=== PATIENT | female | born 1940 | race Caucasian/White ===

== ENCOUNTER 2017-06-10 22:02 | Emergency (ER) | payer MEDICARE, SELFPAY ==
[2017-06-10 22:04] VITALS: BP 160/72; PULSE 72; RESP 20; TEMP 36.2; O2SAT 97; BMI 44.1
--- NOTE | 2017-06-10 22:06 | RAD_ITS ---
XR Hip Unilateral with Pelvis when performed; 2-3 Views INDICATION: FALL, LEFT FEMUR/HIP PAIN COMPARISON: None TECHNIQUE: Frontal view of the pelvis and 2 views of the left hip FINDINGS: The pelvis is intact and there is normal alignment at the SI joints and symphysis pubis. Superior and inferior pelvic rami appear intact. The hips appear intact and well aligned. Dedicated views of the left hip demonstrate mild degenerative changes. No convincing plain film evidence of fracture or dislocation. RAD/Hip 2-3 Views with Pelvis IMPRESSION: Pelvis and left hip appear intact and well aligned. at 2317 Reported and signed by: Angy Valladares MD Electronically Signed: Angy Valladares MD at 23:15 EDT Tel , Service support ,
--- NOTE | 2017-06-10 22:10 | ED.VISSUMM ---
- ER Visit Summary Date of Service: 06/10/17 Chief Complaint: Mechanical fall History of Present Illness: The patient is a 76 F presents to the emergency department after mechanical fall. Patient was in her bathtub. She states that she got a new mat in the tub. She thought that the suction cups were down, but the mat slipped. She fell landing on her left hip. She did not strike her head. She denies loss of consciousness. She was unable to get up because of the pain. She has had prior rib fracture, but no history of other orthopedic injury. She does not take anticoagulants. She was not syndrome prior to the fall. She normally ambulates without assistance. Physical Examination: Vital signs reviewed General: Well-nourished, well-developed Head: Normocephalic, atraumatic Eyes: Pupils equal and reactive, extraocular muscles intact Neck, supple, no lymphadenopathy Heart: Regular rate and rhythm Respiratory: No distress, clear bilaterally Abdomen: Soft, nontender, nondistended, no peritoneal signs Back: Nontender Extremities: No rotational deformity of the left lower extremity, tenderness to palpation over the greater trochanter, pain with logroll, no edema, no cords Skin: Normal color no rash Neuro: Alert and oriented, no focal or lateralizing deficits Test Results: [] Emergency Department Course and Treatment: Patient presents after mechanical fall. She had tenderness in the left hip. She was given analgesics and antiemetics with improvement of her pain. Labs were obtained were unremarkable. The fall was strictly mechanical. X-rays of the chest are unremarkable. X-rays of the pelvis and hip show no fracture. Patient's pain is improved. The patient is able to stand and ambulate. At this time, I do for that she is safe for discharge. She will continue Tylenol at home. The patient will be discharged to follow-up with PCP or return with worsening symptoms. Treatment Plan: [] Disposition: Discharge Impression: 1. Mechanical fall 2. Left hip contusion This note was generated with [employer] software. It may contain incorrect words, spelling, and punctuation that were not noted in review of the chart prior to signing ED Disposition - Plan for ED Patient: Chief Complaint: Fall Instructions: ED Contusion Hip Referrals: Myron Sanders MD [Primary Care Provider] -
[2017-06-10] MEDS: 0.9% Normal Saline 1,000 ML 150 ML IV (22:16)
[2017-06-10] MEDS: Morphine 4 MG/ML Syringe IV (22:16)
[2017-06-10] MEDS: Ondansetron 4 MG/2 ML Vial IV (22:17)
--- NOTE | 2017-06-10 22:30 | RAD_ITS ---
XR Chest 1 View INDICATION: FALL, LEFT FEMUR/HIP PAIN COMPARISON: None FINDINGS: Heart size and pulmonary vascularity are within normal limits. The lungs are clear without evidence of airspace consolidation or pleural effusion. The osseous structures are grossly unremarkable. RAD/Chest 1 View (Portable) IMPRESSION: No radiographic evidence of acute intrathoracic disease. at 2316 Reported and signed by: Angy Valladares MD Electronically Signed: Angy Valladares MD at 23:14 EDT Tel , Service support ,
[2017-06-10 22:47] LABS: Anion Gap 7 (5-15); BUN 16 mg/dL (7-18); BUN/Creat Ratio 16.5 RATIO (10-20); Calcium,Total 8.9 mg/dL (8.5-10.1); Chloride 100 mmol/L (98-107); Creatinine, Serum 0.97 mg/dL (0.55-1.02); EST Glomerular Filtration Rate 59 mL/min (>60); Est Glom Filt Rate - Afr Amer 72 mL/min (>60); Estimated Creatinine Clearance 72.13 ml/min; Glucose 139 mg/dL (74-106); Potassium 3.8 mmol/L (3.5-5.1); Sodium Level 132 mmol/L (136-145)
[2017-06-10 22:51] LABS: Absolute Lymphocyte Count 3.76 X10^3/ul (0.83-4.51); Basophil# 0.03 X10^3/uL; Basophil% 0.3 % (0-1); Eosinophil# 0.47 X10^3/uL; Eosinophils% 5.1 % (0-5); Hematocrit 37.5 % (37-47); Hemoglobin 13.1 g/dl (12.0-15.0); Lymphocyte # 3.76 X10^3/ul (4.0); Lymphocyte % 40.9 % (19-41); Mean Corp Hgb Conc 34.9 g/gl (32-36); Mean Corpuscular Hgb 30.3 pg (27.0-32.0); Mean Corpuscular Volume 86.8 fL (81-99); Mean Platelet Vol. 9.1 fl (6.2-12.0); Monocyte# 0.94 X10^3/uL; Monocyte% 10.2 % (0-10); Neutrophil # 3.97 X10^3/uL (2.7-7.7); Neutrophil % 43.3 % (47-70); Platelet Count 237 K/mm3 (150-450); RBC Distribution Width CV 12.7 % (11.6-14.6); RBC Distribution Width SD 40.8 fl (35.1-43.9); Red Blood Count 4.32 M/mm3 (4.2-5.4); White Blood Count 9.2 K/mm3 (4.4-11.0)
[2017-06-10 22:52] LABS: POSITIVE COUNT NO; POSITIVE DIFFERENTIAL NO; POSITIVE MORPHOLOGY NO
[2017-06-10 23:27] VITALS: BP 132/82; PULSE 69; RESP 14; O2SAT 94
== END 2017-06-10 23:38 | disposition home or self-care (01) ==
PROVIDERS: Emergency Provider Emergency Medicine; Family Provider Family Medicine; PCP Family Medicine
DX: S70.02XA Contusion of left hip, initial encounter (principal); I10 Essential (primary) hypertension; E78.00 Pure hypercholesterolemia, unspecified; Z79.891 Long term (current) use of opiate analgesic; Z79.899 Other long term (current) drug therapy; W18.2XXA Fall in (into) shower or empty bathtub, initial encounter; Y93.E1 Activity, personal bathing and showering; Y92.002 Bathroom of unspecified non-institutional (private) residence as the place of occurrence of the external cause; Y99.8 Other external cause status
CPT/HCPCS: 71045; 73502; 80048; 85025; 96361; 96374; 96375; 99285; J7030; A4216

== ENCOUNTER 2018-05-02 18:38 | Emergency (ER) | payer MEDICARE, SELFPAY ==
[2018-05-02 18:39] VITALS: BP 165/84; PULSE 68; RESP 16; TEMP 36.6; O2SAT 96; BMI 44.1
--- NOTE | 2018-05-02 19:35 | RAD_ITS ---
STUDY: X-RAY - RIGHT ELBOW REASON FOR EXAM: Female, 77 years old. Pain TECHNIQUE: 3 view(s) of the elbow. COMPARISON: None. FINDINGS: Normal visualized radius and ulna. There is a focal area of hypodensity at the capitellum measuring 1.7 x 1.3 cm, of questionable etiology. Normal radiocapitellar and ulnotrochlear articulations. There is soft tissue injury posterior to the elbow. RAD/Elbow min 3 Views IMPRESSION: No acute bony injury of the elbow. Hypodense area of the capitellum of the humerus. Electronically Signed: Carlos Renner DO at 20:52 EDT Tel [phone], Service support ,
--- NOTE | 2018-05-02 21:25 | ED.DCSUM_ITS ---
- ER Visit Summary Date of Service: 05/02/18 Chief Complaint: Fall History of Present Illness: The patient is a 77 F who presents with injury to her right elbow that occurred today after a fall. Patient states she tripped and fell onto her right elbow. Patient denies any head injury or loss of consciousness. Patient states the pain is throbbing and is worse with movement. Patient states her tetanus is up-to-date. Physical Examination: Vital signs are stable. Patient is afebrile. Patient is in no acute distress. Musculoskeletal exam reveals tenderness over the posterior aspect of the right elbow. There is no deformity noted. Range of motion was limited secondary to pain. There is an abrasion and skin tear over the posterior aspect of the right elbow. There is no active bleeding noted. Radial pulses are equal bilaterally. Sensation was intact to light touch in the radial, median, and ulnar areas. The remaining physical exam is within normal limits. Test Results: X-rays of the right elbow were obtained. There is no acute fracture. Emergency Department Course and Treatment: Bacitracin dressing was applied. Patient was instructed to follow-up with her primary care physician in 5-7 days. Patient understood and was agreeable with the plan. All questions were answered. Disposition: Discharge home Impression: Right elbow abrasion This note was generated with [employer] dictation software. It may contain incorrect words, spelling, and punctuation that were not noted in review of the chart prior to signing ED Disposition - Plan for ED Patient: Disposition: Home or Assisted Living Diagnosis: Abrasion of right elbow, initial encounter Instructions: ED Abrasion Referrals: Myron Sanders MD [Primary Care Provider] - 5-7 Days
== END 2018-05-02 21:51 | disposition home or self-care (01) ==
PROVIDERS: Emergency Provider Emergency Medicine; Family Provider Family Medicine; PCP Family Medicine
DX: S50.311A Abrasion of right elbow, initial encounter (principal); I10 Essential (primary) hypertension; W01.0XXA Fall on same level from slipping, tripping and stumbling without subsequent striking against object, initial encounter; Y93.01 Activity, walking, marching and hiking; Y92.89 Other specified places as the place of occurrence of the external cause; Y99.8 Other external cause status
CPT/HCPCS: 73080; 99284

== ENCOUNTER 2020-11-10 19:30 | Emergency (ER) | payer MEDICARE, SELFPAY ==
[2020-11-10 19:43] VITALS: BP 211/94; PULSE 90; RESP 16; TEMP 36.9; O2SAT 98; BMI 42.7
--- NOTE | 2020-11-10 20:26 | CT_ITS ---
EXAMINATION : Head CT w/out contrast HISTORY : Head injury COMPARISON : None. TECHNIQUE : Multiple contiguous axial images were obtained from the skull base to the vertex without intravenous contrast. A radiation dose optimization technique was used for this scan. FINDINGS : There is no evidence for acute intracranial hemorrhage, mass effect, or midline shift. There is no extra-axial fluid collection. There are periventricular white matter changes consistent with chronic microvascular ischemic disease. There is sulcal widening and ventricular enlargement consistent with cerebral atrophy. There is normal velasco-white differentiation, without CT evidence of acute ischemia or infarct. Right temporal lobe encephalomalacia. The skull base and calvarium are unremarkable. The orbits are unremarkable. Mucosal thickening of the bilateral maxillary and sphenoid sinuses as well as multiple ethmoid air cells. The mastoid air cells are well-aerated. Large left supraorbital scalp hematoma. CT/Brain/Head without Contrast IMPRESSION: Large left supraorbital scalp hematoma. No fracture or intracranial hemorrhage. Chronic involutional and ischemic changes of the brain. Bilateral maxillary, sphenoid and ethmoid sinusitis. Electronically Signed: Jagdeep Urena MD at 21:13 EDT Tel , Service support ,
--- NOTE | 2020-11-10 20:27 | EDS_ITS ---
HPI History of Present Illness Chief Complaint: Head Injury Informant: patient Onset/Context/Timing Onset: Today Mechanism/Context: Fall Location of pain/injuries: Left hand Quality of Pain: Sharp Location: Left frontal Worsened by: Nothing Relieved by: Nothing Associated Symptoms Associated Symptoms: Negative for Parasthesias, Weakness, Inability to ambulate, Loss of consciousness and Amnesia Narrative Narrative: Patient presents after a fall that occurred today. Patient lost her balance and fell forward. Patient hit the left side of her head. Patient denies any loss of consciousness. Patient also hit the back of her left hand. Patient states nothing makes her pain worse and nothing makes it better. Patient states her pain is localized to the left frontal area. Patient describes her pain as sharp. Patient states her last tetanus shot was approximately 1 year ago. [facility] Medical History Hypertension Home Medications hydrochlorothiazide 50 mg PO DAILY 03/19/13 [History Last Taken Unknown] alendronate 70 mg PO Q7D@0700 06/10/17 [History Last Taken 11/07/20] lisinopril 1 tab PO DAILY 06/10/17 [History Last Taken Unknown] oxybutynin chloride [Ditropan Xl] 15 mg PO DAILY 06/10/17 [History Last Taken Unknown] tramadol 1 tab PO DAILY PRN 06/10/17 [History Last Taken Unknown] Allergy/AdvReac Type Severity Reaction Status Date / Time cephalexin monohydrate Allergy Other Verified 11/10/20 19:32 [From Keflex] ibuprofen Allergy Hives Verified 11/10/20 19:32 latex Allergy Hives Verified 11/10/20 19:32 chocolate flavor AdvReac Other Verified 11/10/20 19:32 Social History Smoking Status: Former smoker ROS ROS ED Constitutional Constitutional ED: Denies chills or fever(s) Eyes Eyes: Denies blurry vision or change in vision ENT ENT ED: Denies rhinorrhea or sore throat Cardiovascular Cardiovascular: Denies chest pain or palpitations Respiratory/Chest Respiratory/Chest: Denies cough or dyspnea Gastrointestinal Gastrointestinal: Denies nausea or vomiting Genitourinary Genitourinary ED: Denies dysuria or hematuria Musculoskeletal Musculoskeletal: Denies back pain or neck pain Integumentary Reports Abrasions; Denies abscess or rash Neurologic Neurologic: Reports headache(s); Denies weakness Allergic/Immunologic Allergic/Immunologic ED: Denies mouth swelling or urticaria EXAM Physical Exam Const Vital Signs: 11/10/20 19:43 11/10/20 19:45 Temperature 98.5 F Temperature Source Oral Pulse Rate 90 Respiratory Rate 16 Respiratory Effort Normal Non-Labored Respiratory Depth Normal Respiratory Pattern Normal Blood Pressure 211/94 H Blood Pressure Mean 133 Pulse Ox 98 Oxygen Delivery Method Room Air Positive well nourished, well developed and obese General Appearance ED: well developed Nutritional Appearance: obese HEENT HEENT Narrative: There is edema, ecchymosis, and tenderness over the left forehead area. There is a superficial abrasion over the left temporal area. There is no active bleeding. There is no bony crepitance or step-off. There is no deformity noted. Eyes PERRL and EOMs intact bilaterally Neck full ROM General: Negative for tenderness Resp normal respiratory effort and clear to auscultation bilaterally Cardio regular rhythm Rate: regular rate GI normal to inspection, nondistended, normoactive bowel sounds and non-tender Palpation: soft Extremity normal to inspection and full ROM Neuro oriented x3, CN's II-XII intact bilaterally, moves all extremities, no focal motor deficits and no sensory deficits noted Sensorium / Orientation: alert Psych mental status grossly normal Skin Skin Narrative: There is a superficial skin tear noted over the dorsal aspect of the left hand. There is no active bleeding. There is minimal gapping of the wound margins. There are no foreign bodies noted. MDM MDM MDM Narrative Medical decision making narrative: CT scan of the brain was obtained. There is no acute intracranial abnormality noted. There is a large scalp hematoma over the left supraorbital area. There is diffuse chronic sinusitis noted. This was interpreted by the radiologist and reviewed by myself. Bacitracin dressing was applied to the skin tear over the left hand. Patient was instructed to rest in a dark quiet room. Patient was instructed to take Tylenol or ibuprofen as needed for any pain. Patient was instructed to follow-up with her primary care physician in 3 to 5 days. Patient understood and was agreeable with the plan. All questions were answered. Radiography Diagnostic Testing: Radiology Impression Brain CT 11/10/20 20:26 IMPRESSION: Large left supraorbital scalp hematoma. No fracture or intracranial hemorrhage. Chronic involutional and ischemic changes of the brain. Bilateral maxillary, sphenoid and ethmoid sinusitis. Electronically Signed: Jagdeep Urena MD at 21:13 EDT Tel , Service support , Discharge Plan Triage Chief Complaint: Head Injury ED Provider: Ashish Ayala Dx/Rx/DC Orders Clinical Impression: Head injury Instructions: ED Head Injury (Adult) Prescriptions: No Action hydrochlorothiazide 50 MG tablet 50 mg PO DAILY RF: 0 oxybutynin chloride [Ditropan XL] 15 MG tablet extended release 24hr 15 mg PO DAILY RF: 0 alendronate 70 MG tablet 70 mg PO Q7D@0700 RF: 0 lisinopril 10 MG tablet 1 tab PO DAILY RF: 0 tramadol 50 MG tablet 1 tab PO DAILY PRN (Reason: Pain) RF: 0 Primary Care Provider: Myron Sanders Referrals: Myron Sanders MD [Primary Care Provider] - 3-5 Days Disposition Disposition: Home, Self Care
[2020-11-10 22:38] VITALS: PULSE 70; RESP 18; O2SAT 95
== END 2020-11-10 22:50 | disposition home or self-care (01) ==
PROVIDERS: Emergency Provider Emergency Medicine; PCP Family Medicine
DX: S09.90XA Unspecified injury of head, initial encounter (principal); E66.9 Obesity, unspecified; I10 Essential (primary) hypertension; Z87.891 Personal history of nicotine dependence; Z79.899 Other long term (current) drug therapy; W19.XXXA Unspecified fall, initial encounter
CPT/HCPCS: 70450; 99284

== ENCOUNTER 2020-12-29 18:41 | Emergency (ER) | payer MEDICARE, SELFPAY ==
[2020-12-29 18:41] VITALS: BP 192/77; PULSE 75; RESP 20; TEMP 36.7; O2SAT 98; BMI 41.1
--- NOTE | 2020-12-29 19:55 | CT_ITS ---
STUDY: CT BRAIN WITHOUT CONTRAST REASON FOR EXAM: Female, 80 years old. Head injury fall RADIATION DOSAGE (If Supplied By Facility): CTDIvol = ( 44.99 ) mGy, DLP = ( 796.11 ) mGycm TECHNIQUE: Transaxial CT imaging of the brain was performed without administration of intravenous contrast material. Individualized dose optimization techniques were used for this CT. COMPARISON: No relevant priors. FINDINGS: There is no acute intracranial hemorrhage, mass effect, hydrocephalus or herniation. 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 Skull is intact. There are minor mucosal reactive changes in the paranasal sinuses. Appearance is stable since prior. CT/Brain/Head without Contrast IMPRESSION: 1. No acute injury. 2. Unremarkable brain. Electronically Signed: Migdalia Carrasquillo MD at 20:26 EST Tel , Service support ,
[2020-12-29] MEDS: Lidocaine/Epi/Tetracaine 50 ML 1 APPLIC TOPICAL (20:07)
--- NOTE | 2020-12-29 20:11 | EX.ED.GENINJ ---
HPI History of Present Illness Chief Complaint: Head Injury Informant: patient Onset/Context/Timing Onset: Today Mechanism/Context: Fall Quality of Pain: Throbbing Location: Forehead Worsened by: Nothing Relieved by: Nothing Associated Symptoms Associated Symptoms: Negative for Parasthesias, Weakness, Inability to ambulate and Loss of consciousness Narrative Narrative: Patient presents with head injury that occurred today. Patient states she tripped on a loose rug. Patient states she fell forward and hit her head on a cat toy. Patient denies any loss of consciousness. Patient describes her pain as throbbing. Patient denies any paresthesias or weakness. Patient states her last tetanus was 1 to 2 years ago. Patient states the bleeding has been persistent. Patient denies any other injuries. Tetanus Immunization: <5 years PFSH PFSH Medical History (Updated 12/29/20 @ 22:[address] Ashish Ayala DO) Hypertension Home Medications hydrochlorothiazide 50 mg PO DAILY 03/19/13 [History Last Taken Unknown] alendronate 70 mg PO Q7D@0700 06/10/17 [History Last Taken 11/07/20] lisinopril 1 tab PO DAILY 06/10/17 [History Last Taken Unknown] oxybutynin chloride [Ditropan Xl] 15 mg PO DAILY 06/10/17 [History Last Taken Unknown] tramadol 1 tab PO DAILY PRN 06/10/17 [History Last Taken Unknown] diphenhydramine HCl [Benadryl Allergy] 25 mg PO DAILY 12/29/20 [History Last Taken Unknown] ebjuskiu-qki-vcvl-FA-lutein [Centrum Silver Women] 1 tab PO DAILY 12/29/20 [History Last Taken Unknown] Allergy/AdvReac Type Severity Reaction Status Date / Time cephalexin monohydrate Allergy Other Verified 12/29/20 19:42 [From Keflex] ibuprofen Allergy Hives Verified 12/29/20 19:42 latex Allergy Hives Verified 12/29/20 19:42 chocolate flavor AdvReac Other Verified 12/29/20 19:42 Surgical History (Updated 12/29/20 @ 20:[address] Ashish Ayala DO) History of carpal tunnel surgery of left wrist Social History Smoking Status: Former smoker ROS ROS ED Constitutional Constitutional ED: Denies chills or fever(s) Eyes Eyes: Denies blurry vision or change in vision ENT ENT ED: Denies rhinorrhea or sore throat Cardiovascular Cardiovascular: Denies chest pain or palpitations Respiratory/Chest Respiratory/Chest: Denies cough or dyspnea Gastrointestinal Gastrointestinal: Denies nausea or vomiting Genitourinary Genitourinary ED: Denies dysuria or hematuria Musculoskeletal Musculoskeletal: Denies back pain or neck pain Integumentary Denies abscess or rash Neurologic Neurologic: Reports headache(s); Denies weakness Allergic/Immunologic Allergic/Immunologic ED: Denies mouth swelling or urticaria EXAM Physical Exam Const Vital Signs: 12/29/20 18:41 12/29/20 19:43 Temperature 98.1 F Temperature Source Temporal Pulse Rate 75 Respiratory Rate 20 H Respiratory Effort Normal Non-Labored Respiratory Depth Normal Respiratory Pattern Normal Blood Pressure 192/77 H Blood Pressure Mean 115 Pulse Ox 98 Oxygen Delivery Method Room Air Positive well nourished and well developed General Appearance ED: well developed HEENT HEENT Narrative: There is a 4.5 cm full-thickness linear laceration in the midline of the forehead. There is moderate bleeding. There is no bony crepitance or step-off. There are no foreign bodies noted. Eyes PERRL and EOMs intact bilaterally Neck full ROM Resp normal respiratory effort and clear to auscultation bilaterally Cardio regular rhythm Rate: regular rate GI normal to inspection, nondistended, normoactive bowel sounds and non-tender Palpation: soft Extremity normal to inspection Neuro oriented x3, CN's II-XII intact bilaterally, moves all extremities, no focal motor deficits and no sensory deficits noted Sensorium / Orientation: alert PROC Procedures Lacerations Forehead: Depth: Sub Q Shape: Linear Prep: Sterile Conditions and Chlorhexadine Laceration repair: Dermabond and Wound explored MDM MDM MDM Narrative Medical decision making narrative: CT scan of the brain was obtained. There is no acute intracranial abnormality. This was interpreted by the radiologist and reviewed by myself. LET gel was applied to the forehead laceration. The wound was cleaned and irrigated with copious amounts of normal saline. The wound was closed with Dermabond skin adhesive. 3 layers were applied. Patient tolerated the procedure well. Patient was instructed to avoid bacitracin, Neosporin, triple antibiotic ointment, or other Vaseline-based ointments. Patient was instructed to follow-up with her primary care physician in 5 to 7 days. Patient understood and was agreeable with the plan. All questions were answered. Radiography Diagnostic Testing: Clinical Impression(s) from Imaging Studies Brain CT 12/29/20 19:55 IMPRESSION: 1. No acute injury. 2. Unremarkable brain. Electronically Signed: Migdalia Carrasquillo MD at 20:26 EST Tel , Service support , Discharge Plan Triage Chief Complaint: Head Injury ED Provider: Ashish Ayala Dx/Rx/DC Orders Clinical Impression: Closed head injury, Forehead laceration Instructions: ED Head Injury (Adult), ED Laceration, Face: Skin Glue Prescriptions: No Action hydrochlorothiazide 50 MG tablet 50 mg PO DAILY RF: 0 oxybutynin chloride [Ditropan XL] 15 MG tablet extended release 24hr 15 mg PO DAILY RF: 0 alendronate 70 MG tablet 70 mg PO Q7D@0700 RF: 0 lisinopril 10 MG tablet 1 tab PO DAILY RF: 0 tramadol 50 MG tablet 1 tab PO DAILY PRN (Reason: Pain) RF: 0 diphenhydramine HCl [Benadryl Allergy] 25 mg Tablet 25 mg PO DAILY RF: 0 Centrum Silver Women 8 mg iron-400 mcg-300 mcg Tablet 1 tab PO DAILY RF: 0 Primary Care Provider: Myron Sanders Referrals: Myron Sanders MD [Primary Care Provider] - 5-7 Days Disposition Disposition: Home, Self Care
== END 2020-12-29 22:42 | disposition home or self-care (01) ==
PROVIDERS: Emergency Provider Emergency Medicine; PCP Family Medicine
DX: S01.81XA Laceration without foreign body of other part of head, initial encounter (principal); I10 Essential (primary) hypertension; Z87.891 Personal history of nicotine dependence; Z79.899 Other long term (current) drug therapy; W01.198A Fall on same level from slipping, tripping and stumbling with subsequent striking against other object, initial encounter
CPT/HCPCS: G0168; 70450; 99285

== ENCOUNTER 2022-11-06 09:05 | Emergency (ER) | payer MEDICARE, SELFPAY ==
[2022-11-06 09:07] VITALS: BP 183/129; PULSE 72; RESP 18; TEMP 35.6; O2SAT 95; BMI 48.6
--- NOTE | 2022-11-06 09:51 | CT_ITS ---
HISTORY: pain. TECHNIQUE: Helically acquired images were obtained of the lumbar spine. 2D reformats were reviewed. A radiation dose optimization technique was used for this scan. .336 images. COMPARISON: None. FINDINGS: VERTEBRAE: Mild loss of height of the L2 vertebral body with mild linear sclerosis in the vertebral body. Mild angulation of the right superior endplate of L3. Generalized osteopenia. Peripherally sclerotic lesion in the left iliac bone at the sacroiliac joint, benign appearance. ALIGNMENT: No significant anterior or posterior subluxation. INTERVERTEBRAL DISCS: Preservation of disc heights. Calcification of the L3-4 and L5-S1 discs. No critical central canal stenosis seen. SOFT TISSUES: No paraspinal fluid collections. CT/Spine Lumbar without Contrast IMPRESSION: Very mild L2 compression fracture, subacute to chronic. Nondisplaced acute fracture of the right L3 vertebral body. Electronically Signed: Tia Shepard MD at 10:24 EDT ,
--- NOTE | 2022-11-06 09:52 | ED.VIS.BACK ---
HPI History of Present Illness Chief Complaint: Back Informant: patient and family Narrative Narrative: 82-year-old female presenting to the emergency department from home with a chief complaint of back pain. Patient states that last night she was walking to her neighbors when she tripped over the cracks in the sidewalk. She states she landed on her back and her right elbow. She notes a injury to the right elbow skin. She notes pain in the right lower lumbar region. No radicular symptoms. No home treatment. She called EMS today. She denies any bowel or bladder dysfunction. She denies any leg weakness or sensory changes. She denies hitting her head. No neck pain. She notes that her tetanus shot was updated last year. [facility] Medical History Hypertension Home Medications hydrochlorothiazide 50 mg tablet 50 mg PO DAILY 03/19/13 [History Last Taken Unknown] alendronate 70 mg tablet 70 mg PO Q7D@0700 06/10/17 [History Last Taken 11/07/20] lisinopril 10 mg tablet 1 tab PO DAILY 06/10/17 [History Last Taken Unknown] oxybutynin chloride 15 mg tablet,extended release 24 hr (Ditropan XL) 15 mg PO DAILY 06/10/17 [History Last Taken Unknown] tramadol 50 mg tablet 1 tab PO DAILY PRN Pain 06/10/17 [History Last Taken Unknown] diphenhydramine HCl 25 mg tablet (Benadryl Allergy) 25 mg PO DAILY allergies 12/29/20 [History Last Taken Unknown] [id number] 8 mg-folic 400 mcg-K 50 mcg-lutein 300 mcg tablet (Centrum Silver Women) 1 tab PO DAILY 12/29/20 [History Last Taken Unknown] docusate sodium 100 mg capsule (Colace) 100 mg PO DAILY #20 caps 11/06/22 [Rx Last Taken Unknown] oxycodone-acetaminophen 5 mg-325 mg tablet 1 tab PO Q6H PRN PRN Pain 3 days #12 TABLETS 11/06/22 [Rx Last Taken Unknown] Allergy/AdvReac Type Severity Reaction Status Date / Time cephalexin monohydrate Allergy Other Verified 11/06/22 09:05 [From [employer]] ibuprofen Allergy Hives Verified 11/06/22 09:05 latex Allergy Hives Verified 11/06/22 09:05 chocolate flavor AdvReac Other Verified 11/06/22 09:05 Surgical History History of carpal tunnel surgery of left wrist Social History Smoking Status: Former smoker ROS ROS ED Constitutional Constitutional ED: Denies chills, fever(s) or weight loss Eyes Eyes: Denies change in vision or diplopia ENT ENT ED: Denies ear pain, rhinorrhea or sore throat Cardiovascular Cardiovascular: Denies chest pain, orthopnea, palpitations or racing heartbeat Respiratory/Chest Respiratory/Chest: Denies cough, dyspnea or orthopnea Gastrointestinal Gastrointestinal: Denies abdominal pain, diarrhea, nausea or vomiting Genitourinary Genitourinary ED: Denies dysuria, hematuria or urinary frequency Musculoskeletal Musculoskeletal: Reports back pain; Denies arthralgias, myalgias or neck pain Integumentary Reports Abrasions; Denies abscess or rash Neurologic Neurologic: Denies headache(s) or weakness Psychiatric Psychiatric: Denies anxiety, depression, suicidal ideation or suicidal thoughts Endocrine Endocrinology: Denies polydipsia, polyphagia or polyuria Allergic/Immunologic Allergic/Immunologic ED: Denies mouth swelling, tongue swelling or urticaria EXAM Physical Exam Const Vital Signs: 11/06/22 09:07 Temperature 96.0 F L Temperature Source Temporal Pulse Rate 72 Respiratory Rate 18 Blood Pressure 183/129 H Blood Pressure Mean 147 Pulse Ox 95 Oxygen Delivery Method Room Air Positive well nourished, well developed and obese General Appearance ED: well developed Nutritional Appearance: obese HEENT Reports normocephalic, head/scalp atraumatic and moist mucous membranes Eyes PERRL and EOMs intact bilaterally Neck no lymphadenopathy, supple and no JVD Resp normal respiratory effort and clear to auscultation bilaterally Cardio regular rate, regular rhythm and no murmurs GI normal to inspection, nondistended, normoactive bowel sounds and non-tender Palpation: soft Back/Spine Back/Spine Narrative: Patient has a painful range of motion. She has tenderness to palpation in the right lower lumbar paraspinal musculature. No midline tenderness. There is no ecchymosis noted. Extremity Extremity Narrative: Full range of motion at the right elbow. No pain with pronation supination. No radial head tenderness. There is a superficial dime sized skin tear noted. The shoulder and proximal humerus appear unaffected. General Extremety ED: Negative for edema General Extremity: Negative for edema Neuro oriented x3 and CN's II-XII intact bilaterally Sensorium / Orientation: alert Motor Exam: strength 5/5 throughout Psych mental status grossly normal Mood & Affect: Negative for depressed or tearful Skin no rashes or lesions noted and no wounds MDM MDM MDM Narrative Medical decision making narrative: CT of the lumbar spine demonstrates a mild L2 compression fracture and a nondisplaced fracture of the right L3 vertebral body. Patient declined pain medication while here. Her wound was cleansed and dressed. This appears to be a stable fracture and currently has no neurologic symptoms. I will write for pain medication. We talked about her risk of significant constipation and I will write for her to have Colace. She is to follow-up with her family doctor. Radiography Diagnostic Testing: Clinical Impression(s) from Imaging Studies Lumbar Spine CT 11/06/22 09:51 IMPRESSION: Very mild L2 compression fracture, subacute to chronic. Nondisplaced acute fracture of the right L3 vertebral body. Electronically Signed: Tia Shepard MD at 10:24 EDT , Discharge Plan Triage Chief Complaint: Back ED Provider: Kristopher Sanchez Dx/Rx/DC Orders Clinical Impression: Closed L2 vertebral fracture, Closed L3 vertebral fracture, Skin tear of elbow without complication, Fall Instructions: Compression Fx Prescriptions: New oxycodone-acetaminophen [oxycodone-acetaminophen] 5-325 mg tablet 1 tab PO Q6H PRN PRN (Reason: Pain) 3 Days Qty: 12 0RF docusate sodium [Colace] 100 mg capsule 100 mg PO DAILY Qty: 20 0RF No Action hydrochlorothiazide 50 MG tablet 50 mg PO DAILY oxybutynin chloride [Ditropan XL] 15 MG tablet extended release 24hr 15 mg PO DAILY alendronate 70 MG tablet 70 mg PO Q7D@0700 lisinopril 10 MG tablet 1 tab PO DAILY Patient Comments: tramadol 50 MG tablet 1 tab PO DAILY PRN (Reason: Pain) Patient Comments: diphenhydramine HCl [Benadryl Allergy] 25 mg Tablet 25 mg PO DAILY Centrum Silver Women 8 mg iron-400 mcg-300 mcg Tablet 1 tab PO DAILY Primary Care Provider: Myron Sanders Referrals: Myron Sanders MD [Primary Care Provider] - 1-2 Weeks Disposition Disposition: Home, Self Care
== END 2022-11-06 11:47 | disposition home or self-care (01) ==
PROVIDERS: Emergency Provider Emergency Medicine; PCP Family Medicine; Visit Provider Emergency Medicine
DX: S32.029A Unspecified fracture of second lumbar vertebra, initial encounter for closed fracture (principal); S32.039A Unspecified fracture of third lumbar vertebra, initial encounter for closed fracture; S51.011A Laceration without foreign body of right elbow, initial encounter; E66.9 Obesity, unspecified; Z87.891 Personal history of nicotine dependence; X58.XXXA Exposure to other specified factors, initial encounter
CPT/HCPCS: 72131; 99284

== ENCOUNTER → 2024-04-29 | Outpatient (CLI) | payer MEDICARE, SELFPAY ==
[2024-04-29 15:27] LABS: Absolute Lymphocyte Count 2.76 X10^3/uL (0.83-4.51); Basophil# 0.04 X10^3/uL; Basophil% 0.6 % (0-1); Eosinophil# 0.15 X10^3/uL; Eosinophils% 2.2 % (0-5); Hematocrit 40.7 % (37-47); Hemoglobin 13.3 g/dL (12.0-15.0); Lymphocyte # 2.76 X10^3/ul (0.83-4.51); Lymphocyte % 40.5 % (19-41); Mean Corp Hgb Conc 32.7 g/dL (32-36); Mean Corpuscular Volume 91.7 fL (81-99); Mean Platelet Vol. 10.5 fl (6.2-12.0); Monocyte# 0.86 X10^3/uL; Monocyte% 12.6 % (0-10); NRBC Flagged by Analyzer 0 % (0-5); Neutrophil # 2.99 X10^3/uL (2.7-7.7); Platelet Count 234 K/mm3 (150-450); RBC Distribution Width CV 13.6 % (11.6-14.6); RBC Distribution Width SD 45.9 fl (35.1-43.9); Red Blood Count 4.44 M/mm3 (4.2-5.4); White Blood Count 6.8 K/mm3 (4.4-11.0)
[2024-04-29 23:58] LABS: Vitamin B12 644 pg/mL (180-914); Vitamin D,25 Hydroxy 28.9 ng/mL (30-100)
[2024-04-30 00:09] LABS: AST(SGOT) 18 U/L (<=31); Alanine Aminotransfer ALT/SGPT 13 U/L (<=34); Albumin, Serum 3.6 g/dL (3.4-4.8); Alkaline Phosphatase 97 U/L (35-104); Anion Gap 10 (5-15); BUN 15 mg/dL (4-19); BUN/Creat Ratio 17.2 RATIO (10-20); Calcium,Total 9.5 mg/dL (7.6-11.0); Carbon Dioxide 24.8 mmol/L (21.0-32.0); Chloride 105 mmol/L (98-108); Creatinine, Serum 0.85 mg/dL (0.70-1.20); EST Glomerular Filtration Rate 68 (>60); Globulin 3.7 g/dL (2.2-4.2); Glucose 77 mg/dL (70-99); Potassium 4.3 mmol/L (3.3-5.1); Protein, Total 7.2 g/dL (5.9-8.4); Sodium Level 139 mmol/L (133-145); Total Bilirubin 0.39 mg/dL (0.00-1.30)
[2024-04-30 01:14] LABS: Cholesterol 178 mg/dL (<=200); High Density Lipoprotein 60 mg/dL; Low Density Lipoprotein Calc. 96 mg/dL; Triglycerides 111 mg/dL; Very Low Density Lipoprotein 22 mg/dL (5-40); cholesterol:hdl ratio screen 2.97
[2024-04-30 20:49] LABS: Hemoglobin A1c 5.7 % (<=5.6)
== END | disposition home or self-care (01) ==
LOC: MFPLAB 11:58
PROVIDERS: PCP Family Medicine; Referring Provider Family Medicine; Visit Provider Family Medicine
DX: I10 Essential (primary) hypertension (principal); R41.3 Other amnesia; Z13.1 Encounter for screening for diabetes mellitus
CPT/HCPCS: 36415; 80053; 80061; 82306; 82607; 83036; 84443; 85025

== ENCOUNTER → 2024-06-07 | Outpatient (CLI) | payer MEDICARE, SELFPAY ==
--- NOTE | 2024-06-07 16:00 | CT_ITS ---
PROCEDURE: BRAIN/HEAD W/WO CONTRAST 06/07/2024 REASON FOR EXAM: MEMORY CHANGE TECHNIQUE: Head CT before and following intravenous contrast. Coronal and Sagittal reconstruction series were provided. CONTRAST: Omnipaque 350 VOLUME: 100 mL Not Provided Gauge IV One or more dose reduction techniques were used (e.g., Automated exposure control, adjustment of the mA and/or kV according to patient size, use of iterative reconstruction technique). COMPARISON: CT brain 12/29/2020 FINDINGS: No acute intracranial hemorrhage, mass, mass effect, midline shift or pathologic extra-axial fluid collection. No suspicious parenchymal or leptomeningeal enhancement Mild parenchymal atrophy with commensurate increase in CSF containing spaces. Patchy white matter hypodensities, patient demographics favor chronic microvascular ischemic changes. Mild paranasal sinus mucosal thickening. Left maxillary sinus air-fluid levels. Bilateral lens replacement. Mastoid air cells are clear. The calvarium is grossly intact. CT/Brain/Head W/WO Contrast IMPRESSION: No acute intracranial abnormality. No suspicious intracranial mass or abnormal parenchymal or leptomeningeal enhan cement. Chronic microvascular ischemia and involutional changes. Reading Location: [facility]
== END | disposition home or self-care (01) ==
LOC: CT 15:59
PROVIDERS: PCP Family Medicine; Referring Provider Family Medicine; Visit Provider Family Medicine
DX: R41.3 Other amnesia (principal)
CPT/HCPCS: 70470; Q9967

== ENCOUNTER → 2025-01-09 | Outpatient (CLI) | payer MEDICARE, SELFPAY ==
--- NOTE | 2025-01-09 15:10 | RAD_ITS ---
PROCEDURE: KNEE 4 OR MORE VIEWS 01/09/2025 REASON FOR EXAM: LEFT KNEE PAIN TECHNIQUE: Procedure Code: RADKN Modality: DX Procedure: KNEE 4 OR MORE VIEWS Laterality: Left COMPARISON: None FINDINGS: There is no evidence of fracture or dislocation. There is moderate arthritis of the patellofemoral joint. There is moderate arthritis of the medial joint space compartment of the knee. There is no significant arthritis of the lateral joint space compartment of the knee. There is no knee joint effusion. There is chondrocalcinosis of the medial and lateral menisci. The periarticular soft tissues are normal. RAD/Knee 4 or More Views IMPRESSION: Moderate arthritis of the left knee. Chondrocalcinosis consistent with CPPD. Reading Location: [id number]
== END | disposition home or self-care (01) ==
LOC: MTRAD 15:09
PROVIDERS: PCP Family Medicine; Referring Provider Family Medicine; Visit Provider Family Medicine
DX: M25.562 Pain in left knee (principal)
CPT/HCPCS: 73564